=== PATIENT | male | born 1970 ===

== ENCOUNTER 2017-02-04 20:37 | Emergency (ER) | payer SELFPAY ==
[2017-02-04 20:43] VITALS: BP 131/67; PULSE 71; RESP 16; TEMP 98.6; O2SAT 99
--- NOTE | 2017-02-04 21:31 | ED PDOC ---
Lower Extremity Pain/Injury Time Seen by Provider: 02/04/17 20:55 Chief Complaint (Nursing): Lower Extremity Problem/Injury Chief Complaint (Provider): Right knee pain History Per: Patient History/Exam Limitations: no limitations Onset/Duration Of Symptoms: Days (x 2) Current Symptoms Are (Timing): Still Present Additional Complaint(s): Quincy is a 46 y/o male who presents to the ED for evaluation of right knee pain for the past 2 days. Denies any associated injury or trauma. Reports pain is located on the medial aspect of knee and worsens with movement. Took Tylenol at home with no relief. PMD: None Past Medical History Reviewed: Historical Data, Nursing Documentation, Vital Signs Vital Signs: Last Vital Signs Temp 98.6 F 02/04/17 20:41 Pulse 71 02/04/17 20:41 Resp 16 02/04/17 20:41 BP 131/67 02/04/17 20:41 Pulse Ox 99 02/04/17 20:41 - Medical History PMH: No Chronic Diseases - Family History Family History: States: Unknown Family Hx - Social History Current smoker - smoking cessation education provided: No Alcohol: None Drugs: Denies - Home Medications Home Medications: Ambulatory Orders Medication Instructions Recorded Ibuprofen [Motrin Tab] 800 mg PO Q6H PRN #20 tab 02/04/17 - Allergies Allergies/Adverse Reactions: Allergies Allergy/AdvReac Type Severity Reaction Status Date / Time No Known Allergies Allergy Verified 02/04/17 20:41 Review of Systems ROS Statement: Except As Marked, All Systems Reviewed And Found Negative Musculoskeletal: Positive for: Leg Pain (R knee) Physical Exam - Reviewed Nursing Documentation Reviewed: Yes Vital Signs Reviewed: Yes - Physical Exam Appears: Positive for: Well, Non-toxic, No Acute Distress Head Exam: Positive for: ATRAUMATIC, NORMAL INSPECTION, NORMOCEPHALIC Skin: Positive for: Normal Color, Warm, Dry Eye Exam: Positive for: Normal appearance Neck: Positive for: Normal Extremity: Positive for: Tenderness (to the right knee medially). Negative for : Other (pain with valgus/varus stress) Neurologic/Psych: Positive for: Alert, Oriented. Negative for: Motor/Sensory Deficits - ECG O2 Sat by Pulse Oximetry: 99 (RA) Pulse Ox Interpretation: Normal Medical Decision Making Medical Decision Making: Time: 21:25 Initial Plan: --Given Motrin 600 mg PO --X-Ray Right Knee ordered x-ray without acute fracture or dislocation Scribe Attestation: Documented by Judy Villasenor, acting as a scribe for Anne Khan PA-C Provider Scribe Attestation: All medical record entries made by the Scribe were at my direction and personally dictated by me. I have reviewed the chart and agree that the record accurately reflects my personal performance of the history, physical exam, medical decision making, and the department course for this patient. I have also personally directed, reviewed, and agree with the discharge instructions and disposition. Disposition - Clinical Impression Clinical Impression: Knee pain - Patient ED Disposition Is Patient to be Admitted: No Counseled Patient/Family Regarding: Diagnosis, Need For Followup, Rx Given - Disposition Disposition: Routine/Home Disposition Time: 21:52 Condition: GOOD Prescriptions: Ibuprofen [Motrin Tab] 800 mg PO Q6H PRN #20 tab PRN Reason: Pain Instructions: Knee Pain (ED) Forms: [employer] (Bengali) Print Language: GERMAN
--- NOTE | 2017-02-05 08:34 | RAD ---
PROCEDURE: Right Knee Radiographs. HISTORY: right knee pain, medial COMPARISON: None. FINDINGS: BONES: No fracture identified. JOINTS: No dislocation seen. Bony articulations appear maintained. JOINT EFFUSION: None. OTHER FINDINGS: None. IMPRESSION: No fracture or dislocation identified.
== END 2017-02-04 22:10 | disposition home or self-care (01) ==
LOC: H.ER 20:37
DX: M25.561 Pain in right knee (principal)